=== PATIENT | female | born 1990 | race Hispanic/Latino ===

== ENCOUNTER 2017-07-10 17:55 | Emergency (ER) | payer SELFPAY ==
[~2017-07-10] VITALS: Ht 172.7 cm; Wt 61.0 kg
[~2017-07-10 17:55] MED LIST: ACYCLOVIR400 MG PO; METRONIDAZOL500 MG PO; NAPROXEN375 MG OR; PRENATA4 PO; TRAMADOL HCL50 MG PO; TYLENOL500 MG OR
[2017-07-10] MEDS ORDERED: ORPHENADRINE100 MG PO (19:21)
[2017-07-10] MEDS ORDERED: IBUPROFEN600 MG PO (19:21)
[2017-07-10 19:24] VITALS: BP 131/89
== END 2017-07-10 19:40 | disposition home or self-care (01) | DRG 563 ==
LOC: ED 17:55
DX: S46.812A Strain of other muscles, fascia and tendons at shoulder and upper arm level, left arm, initial encounter (principal); M62.838 Other muscle spasm

== ENCOUNTER 2017-08-23 17:30 | Emergency (ER) | payer SELFPAY ==
[~2017-08-23] VITALS: Ht 172.7 cm; Wt 70.0 kg
[~2017-08-23 17:30] MED LIST changes: +IBUPROFEN600 MG PO; +ORPHENADRINE100 MG PO
[2017-08-23] MEDS ORDERED: IBUPROFEN600 MG PO (17:53)
[2017-08-23] MEDS ORDERED: AMOXICILLIN875 MG PO (17:53)
[2017-08-23] MEDS ORDERED: PENICILLN VK500 MG PO (17:56)
[2017-08-23 18:05] VITALS: BP 121/68
== END 2017-08-23 18:05 | disposition home or self-care (01) | DRG 159 ==
LOC: ED 17:30
DX: K04.7 Periapical abscess without sinus (principal); K02.9 Dental caries, unspecified; K03.81 Cracked tooth; F17.210 Nicotine dependence, cigarettes, uncomplicated; Z86.79 Personal history of other diseases of the circulatory system; Z87.442 Personal history of urinary calculi

== ENCOUNTER 2017-08-25 11:21 | Emergency (ER) | payer SELFPAY ==
[~2017-08-25] VITALS: Ht 172.7 cm; Wt 64.0 kg
[~2017-08-25 11:21] MED LIST changes: +AMOXICILLIN875 MG PO; +PENICILLN VK500 MG PO
[2017-08-25 12:08] LABS: IMMATURE GRANULOCYTES 0.3 % (0.0-1.0); MEAN CORPUSCULAR HGB 32.4 pG CALC (26.0-32.0); MEAN CORPUSCULAR HGB CONC 33.3 g/L CALC (32.0-36.0); NEUT# 9.6 thou/uL (2.00-7.15); RED BLOOD COUNT 5.64 mill/uL (4.20-5.60); RED CELL DISTRI WIDTH 14.2 % (11.5-15.5)
[2017-08-25 12:09] LABS: HEMATOCRIT 54.9 % (37.0-47.0); HEMOGLOBIN 18.3 g/dl (12.0-16.0); MEAN CELL VOLUME 97.3 fL CALC (80.0-100.0)
[2017-08-25 12:19] LABS: ANION GAP 17 (6-22 (CALC)); BUN 14 mg/dL (7-17); BUN/CREATININE RATIO 19 (12-20 (CALC)); CARBON DIOXIDE 24 mmol/l (22-30); CHLORIDE 104 mmol/l (95-108); CREATININE 0.8 mg/dL (0.5-1.0); GFR > 60 ML/MIN (>=60 (CALC)); GFR FOR AFR.AMER. > 60 ML/MIN (>=60 (CALC)); SODIUM 141 mmol/l (137-146)
[2017-08-25 12:24] LABS: POTASSIUM 4.4 mmol/l (3.5-5.1)
[2017-08-25] MEDS ORDERED: CLINDAMYCIN300 M1 PO (14:10)
[2017-08-25 14:21] VITALS: BP 127/78
== END 2017-08-25 14:20 | disposition home or self-care (01) | DRG 159 ==
LOC: ED 11:21
PROVIDERS: Family Medicine
DX: K02.9 Dental caries, unspecified (principal); K04.7 Periapical abscess without sinus; K03.81 Cracked tooth; F17.210 Nicotine dependence, cigarettes, uncomplicated; Z86.19 Personal history of other infectious and parasitic diseases
CPT/HCPCS: Q9967

== ENCOUNTER 2017-10-20 10:45 | Emergency (ER) | payer SELFPAY ==
[~2017-10-20] VITALS: Ht 160 cm; Wt 63.6 kg
[~2017-10-20 10:45] MED LIST changes: +CLINDAMYCIN300 M1 PO
[2017-10-20] MEDS ORDERED: TORADOL PO (12:30)
[2017-10-20] MEDS ORDERED: FLEXERIL PO (12:30)
[2017-10-20 12:38] VITALS: BP 120/77
== END 2017-10-20 12:46 | disposition home or self-care (01) | DRG 563 ==
LOC: ED 10:45
DX: S29.011A Strain of muscle and tendon of front wall of thorax, initial encounter (principal); X50.0XXA Overexertion from strenuous movement or load, initial encounter; F17.210 Nicotine dependence, cigarettes, uncomplicated; Z87.442 Personal history of urinary calculi

== ENCOUNTER 2018-08-10 11:47 | Emergency (ER) | payer OTHER ==
[~2018-08-10] VITALS: Ht 160 cm; Wt 70.5 kg
[~2018-08-10 11:47] MED LIST changes: +FLEXERIL PO; +TORADOL PO
[2018-08-10] MEDS ORDERED: PENICILLN VK500 M1 PO (12:06)
[2018-08-10 12:20] VITALS: BP 109/77
== END 2018-08-10 12:30 | disposition home or self-care (01) ==
LOC: ED 11:47
DX: K08.89 Other specified disorders of teeth and supporting structures (principal)

== ENCOUNTER 2019-03-22 08:56 | Emergency (ER) | payer OTHER ==
[~2019-03-22] VITALS: Ht 160 cm; Wt 61.0 kg
[~2019-03-22 08:56] MED LIST changes: +PENICILLN VK500 M1 PO
[2019-03-22] MEDS ORDERED: TAM75CAP PO (09:18)
[2019-03-22] MEDS ORDERED: ONDANSETRON4 MG PO (09:18)
[2019-03-22 09:27] VITALS: BP 117/69
== END 2019-03-22 09:30 | disposition home or self-care (01) ==
LOC: ED 08:56
DX: J11.1 Influenza due to unidentified influenza virus with other respiratory manifestations (principal)

== ENCOUNTER 2019-08-27 02:21 | Emergency (ER) | payer OTHER ==
[~2019-08-27 02:21] MED LIST changes: +ONDANSETRON4 MG PO; +TAM75CAP PO
[2019-08-27 03:10] VITALS: BP 115/81
== END 2019-08-27 04:00 ==
LOC: ED 02:21
DX: O71.4 Obstetric high vaginal laceration alone (principal); Z3A.38 38 weeks gestation of pregnancy; Z37.0 Single live birth

== ENCOUNTER 2019-12-18 19:26 | Emergency (ER) | payer OTHER ==
[~2019-12-18] VITALS: Ht 157.5 cm; Wt 63.0 kg
[2019-12-18] MEDS ORDERED: LORTAB 5/3255 MG PO (19:47)
[2019-12-18] MEDS ORDERED: AMOXICILLIN500 MG PO (19:48)
[2019-12-18 20:11] LABS: HEMATOCRIT 44.9 % (37.0-47.0); HEMOGLOBIN 14.3 g/dl (12.0-16.0); IMMATURE GRANULOCYTES 0.2 % (0.0-5.0); MEAN CELL VOLUME 94.9 fL CALC (80.0-100.0); MEAN CORPUSCULAR HGB 30.2 pG CALC (26.0-32.0); MEAN CORPUSCULAR HGB CONC 31.8 g/dL CAL (32.0-36.0); NEUT# 6.69 thou/uL (2.00-7.15); RED BLOOD COUNT 4.73 mill/uL (4.20-5.60); RED CELL DISTRI WIDTH 12.7 % (11.5-15.5)
[2019-12-18 20:12] LABS: URINE BILIRUBIN - DIPSTICK NEGATIVE (NEGATIVE); URINE BLOOD DIPSTICK NEGATIVE (NEGATIVE); URINE COLOR YELLOW; URINE GLUCOSE - DIPSTICK NEGATIVE (NEGATIVE); URINE KETONE NEGATIVE (NEGATIVE); URINE LEUK ESTERASE NEGATIVE (NEGATIVE); URINE NITRITE - DIPSTICK NEGATIVE (Negative); URINE PROTEIN - DIPSTICK NEGATIVE (NEG-TRACE); URINE SPECIFIC GRAVITY 1.015; URINE UROBILINOGEN - DIPSTICK 0.2 E.U./dL (0.2)
[2019-12-18 20:28] LABS: HCG SERUM/URINE (NEG/POS) NEGATIVE (NEGATIVE); PROTHROMBIN TIME 10.4 SECONDS (9.0-12.5)
[2019-12-18 20:30] LABS: ALBUMIN 4.6 g/dL (3.2-5.0); ALKALINE PHOSPHATASE 72 u/l (38-126); ANION GAP 12 (6-22 (CALC)); BILIRUBIN, TOTAL 0.5 mg/dL (0.0-1.4); BUN 10 mg/dL (7-17); BUN/CREATININE RATIO 11 (12-20 (CALC)); CARBON DIOXIDE 25 mmol/l (22-30); CHLORIDE 104 mmol/l (95-108); CREATININE 0.9 mg/dL (0.5-1.0); GFR > 60 ML/MIN (>=60 (CALC)); GFR FOR AFR.AMER. > 60 ML/MIN (>=60 (CALC)); MAGNESIUM 1.8 mg/dL (1.6-2.3); POTASSIUM 4.5 mmol/l (3.5-5.1); SGOT/AST 45 u/l (14-36); SODIUM 137 mmol/l (137-146); TOTAL PROTEIN 7.5 g/dL (6.3-8.2)
[2019-12-18 20:42] LABS: MYOGLOBIN 36 ng/mL (0 - 62)
[2019-12-18] MEDS ORDERED: BUSPAR5 MG PO (21:11)
[2019-12-18 21:19] VITALS: BP 120/73
== END 2019-12-18 21:30 | disposition home or self-care (01) ==
LOC: ED 19:26
PROVIDERS: Family Medicine
DX: R42 Dizziness and giddiness (principal); F41.9 Anxiety disorder, unspecified; R06.02 Shortness of breath; R53.1 Weakness; K08.409 Partial loss of teeth, unspecified cause, unspecified class; Z95.2 Presence of prosthetic heart valve; Z20.828 Contact with and (suspected) exposure to other viral communicable diseases

== ENCOUNTER 2019-12-20 16:21 | Emergency (ER) | payer OTHER ==
[~2019-12-20] VITALS: Ht 157.5 cm; Wt 70.0 kg
[~2019-12-20 16:21] MED LIST changes: +AMOXICILLIN500 MG PO; +BUSPAR5 MG PO; +LORTAB 5/3255 MG PO
[2019-12-20 17:14] LABS: HEMATOCRIT 45.6 % (37.0-47.0); HEMOGLOBIN 14.7 g/dl (12.0-16.0); IMMATURE GRANULOCYTES 0.1 % (0.0-5.0); MEAN CORPUSCULAR HGB 30.3 pG CALC (26.0-32.0); MEAN CORPUSCULAR HGB CONC 32.2 g/dL CAL (32.0-36.0); NEUT# 5.06 thou/uL (2.00-7.15); RED BLOOD COUNT 4.85 mill/uL (4.20-5.60)
[2019-12-20 17:28] LABS: ALBUMIN 4.7 g/dL (3.2-5.0); ALKALINE PHOSPHATASE 75 u/l (38-126); ANION GAP 14 (6-22 (CALC)); BILIRUBIN, TOTAL 0.7 mg/dL (0.0-1.4); BUN 9 mg/dL (7-17); BUN/CREATININE RATIO 12 (12-20 (CALC)); CARBON DIOXIDE 23 mmol/l (22-30); CHLORIDE 106 mmol/l (95-108); CREATININE 0.7 mg/dL (0.5-1.0); GFR > 60 ML/MIN (>=60 (CALC)); GFR FOR AFR.AMER. > 60 ML/MIN (>=60 (CALC)); POTASSIUM 4.3 mmol/l (3.5-5.1); SGOT/AST 96 u/l (14-36); SODIUM 139 mmol/l (137-146); TOTAL PROTEIN 7.6 g/dL (6.3-8.2)
[2019-12-20] MEDS ORDERED: ALL DAY10 MG PO (17:56)
[2019-12-20] MEDS ORDERED: AMOX/K CLAV875 M1 PO (17:56)
[2019-12-20 18:05] VITALS: BP 138/90
== END 2019-12-20 18:02 | disposition home or self-care (01) ==
LOC: ED 16:21
PROVIDERS: Family Medicine
DX: J32.9 Chronic sinusitis, unspecified (principal); F41.9 Anxiety disorder, unspecified; K08.409 Partial loss of teeth, unspecified cause, unspecified class; Z95.2 Presence of prosthetic heart valve

== ENCOUNTER 2020-06-21 13:54 | Emergency (ER) | payer OTHER ==
[~2020-06-21] VITALS: Ht 157.5 cm; Wt 66.4 kg
[~2020-06-21 13:54] MED LIST changes: +ALL DAY10 MG PO; +AMOX/K CLAV875 M1 PO
[2020-06-21] MEDS ORDERED: BUSPIRONE30 MG PO (16:21)
[2020-06-21] MEDS ORDERED: CLONAZEPAM1 MG PO (16:21)
[2020-06-21] MEDS ORDERED: MOTRIN400 MG/TAB PO (16:22)
[2020-06-21] MEDS ORDERED: CYCLOBENZAPRINE10 MG PO (16:39)
[2020-06-21 17:15] VITALS: BP 128/79
== END 2020-06-21 17:15 | disposition home or self-care (01) ==
LOC: ED 13:54
DX: M25.511 Pain in right shoulder (principal); W01.190A Fall on same level from slipping, tripping and stumbling with subsequent striking against furniture, initial encounter; Y92.009 Unspecified place in unspecified non-institutional (private) residence as the place of occurrence of the external cause

== ENCOUNTER 2020-09-13 12:11 | Emergency (ER) | payer OTHER ==
[~2020-09-13] VITALS: Ht 157.5 cm; Wt 64.0 kg
[~2020-09-13 12:11] MED LIST changes: +BUSPIRONE30 MG PO; +CLONAZEPAM1 MG PO; +CYCLOBENZAPRINE10 MG PO; +MOTRIN400 MG/TAB PO
[2020-09-13 14:00] LABS: URINE BILIRUBIN - DIPSTICK NEGATIVE (NEGATIVE); URINE BLOOD DIPSTICK NEGATIVE (NEGATIVE); URINE COLOR YELLOW; URINE GLUCOSE - DIPSTICK NEGATIVE (NEGATIVE); URINE KETONE TRACE mg/dL (NEGATIVE); URINE LEUK ESTERASE NEGATIVE (NEGATIVE); URINE PH 6.5 (4.5-8.0); URINE PROTEIN - DIPSTICK NEGATIVE (NEG-TRACE); URINE UROBILINOGEN - DIPSTICK 0.2 E.U./dL (0.2)
[2020-09-13] MEDS ORDERED: XANAX1 MG PO (14:00)
[2020-09-13] MEDS ORDERED: LAMICTAL100 M1 PO (14:00)
[2020-09-13 14:01] LABS: URINE NITRITE - DIPSTICK NEGATIVE (Negative)
[2020-09-13] MEDS ORDERED: BUSPAR5 MG PO (14:01)
[2020-09-13] MEDS ORDERED: CIPROFLOXACN500 MG PO (14:18)
[2020-09-13] MEDS ORDERED: PYRIDIUM200 MG PO (14:18)
[2020-09-13 14:26] VITALS: BP 109/73
== END 2020-09-13 14:37 | disposition home or self-care (01) ==
LOC: ED 12:11
DX: N30.90 Cystitis, unspecified without hematuria (principal); F31.9 Bipolar disorder, unspecified; F41.9 Anxiety disorder, unspecified; Z87.442 Personal history of urinary calculi

== ENCOUNTER 2021-12-28 09:32 | Emergency (ER) | payer OTHER ==
[~2021-12-28] VITALS: Ht 157.5 cm; Wt 53.9 kg
[~2021-12-28 09:32] MED LIST changes: +CIPROFLOXACN500 MG PO; +LAMICTAL100 M1 PO; +PYRIDIUM200 MG PO; +XANAX1 MG PO
[2021-12-28 09:47] VITALS: BP 127/84
[2021-12-28 10:00] VITALS: BP 124/81
[2021-12-28 10:05] LABS: HEMATOCRIT 44.8 % (37.0-47.0); IMMATURE GRANULOCYTES 0.1 % (0.0-5.0); MEAN CELL VOLUME 93.1 fL CALC (80.0-100.0); MEAN CORPUSCULAR HGB 31.2 pG CALC (26.0-32.0); MEAN CORPUSCULAR HGB CONC 33.5 g/dL CAL (32.0-36.0); NEUT# 5.92 thou/uL (2.00-7.15); RED BLOOD COUNT 4.81 mill/uL (4.20-5.60); RED CELL DISTRI WIDTH 12.9 % (11.5-15.5)
[2021-12-28 10:15] VITALS: BP 111/71
[2021-12-28 10:16] LABS: URINE BLOOD DIPSTICK NEGATIVE (NEGATIVE); URINE COLOR BROWN; URINE GLUCOSE - DIPSTICK NEGATIVE (NEGATIVE); URINE KETONE TRACE mg/dL (NEGATIVE); URINE LEUK ESTERASE NEGATIVE (NEGATIVE); URINE PH 5.5 (4.5-8.0); URINE PROTEIN - DIPSTICK 30 mg/dL (NEG-TRACE); URINE SPECIFIC GRAVITY >=1.030; URINE UROBILINOGEN - DIPSTICK 0.2 E.U./dL (0.2)
[2021-12-28 10:18] LABS: ALBUMIN 4.9 g/dL (3.2-5.0); ALKALINE PHOSPHATASE 76 u/l (38-126); ANION GAP 16 (6-22 (CALC)); BILIRUBIN, TOTAL 0.7 mg/dL (0.0-1.4); BUN 11 mg/dL (7-17); BUN/CREATININE RATIO 13 (12-20 (CALC)); CHLORIDE 100 mmol/l (95-108); CREATININE 0.8 mg/dL (0.5-1.0); GFR FOR AFR.AMER. > 60 ML/MIN (>=60 (CALC)); GFR OTHER RACES > 60 ML/MIN (>=60 (CALC)); POTASSIUM 3.9 mmol/l (3.5-5.1); SGOT/AST 69 u/l (14-36); SODIUM 140 mmol/l (137-146); URINE BILIRUBIN - DIPSTICK MODERATE (NEGATIVE); URINE NITRITE - DIPSTICK NEGATIVE (Negative)
[2021-12-28 10:19] LABS: CARBON DIOXIDE 28 mmol/l (22-30)
[2021-12-28 10:28] LABS: URINE CALCIUM OXALATE CRYSTALS MODERATE lpf; URINE RBC 0-2 RBC/hpf (0-5); URINE WBC 0-2 WBC/hpf (0-5)
[2021-12-28 10:30] VITALS: BP 99/70
[2021-12-28 12:02] VITALS: BP 99/70
== END 2021-12-28 12:07 | disposition home or self-care (01) ==
LOC: ED 09:32
PROVIDERS: Internal Medicine
DX: R11.2 Nausea with vomiting, unspecified (principal); R51.9 Headache, unspecified; F41.9 Anxiety disorder, unspecified; F31.9 Bipolar disorder, unspecified

== ENCOUNTER 2022-02-28 08:16 | Emergency (ER) | payer OTHER ==
[~2022-02-28] VITALS: Ht 157.5 cm; Wt 50.0 kg
[2022-02-28 08:37] VITALS: BP 120/68
[2022-02-28 08:42] LABS: HEMATOCRIT 45.4 % (37.0-47.0); HEMOGLOBIN 14.7 g/dl (12.0-16.0); IMMATURE GRANULOCYTES 0.1 % (0.0-5.0); MEAN CELL VOLUME 95.4 fL CALC (80.0-100.0); MEAN CORPUSCULAR HGB 30.9 pG CALC (26.0-32.0); MEAN CORPUSCULAR HGB CONC 32.4 g/dL CAL (32.0-36.0); NEUT# 4.64 thou/uL (2.00-7.15); RED BLOOD COUNT 4.76 mill/uL (4.20-5.60); RED CELL DISTRI WIDTH 13.6 % (11.5-15.5)
[2022-02-28 08:45] VITALS: BP 111/67
[2022-02-28 09:00] VITALS: BP 112/67
[2022-02-28 09:13] LABS: ALBUMIN 4.5 g/dL (3.2-5.0); ALKALINE PHOSPHATASE 68 u/l (38-126); ANION GAP 13 (6-22 (CALC)); BILIRUBIN, TOTAL 0.7 mg/dL (0.0-1.4); BUN 12 mg/dL (7-17); BUN/CREATININE RATIO 15 (12-20 (CALC)); CARBON DIOXIDE 29 mmol/l (22-30); CHLORIDE 102 mmol/l (95-108); CREATININE 0.8 mg/dL (0.5-1.0); ETHYL ALCOHOL 0 mg/dl (0-30); GFR FOR AFR.AMER. > 60 ML/MIN (>=60 (CALC)); GFR OTHER RACES > 60 ML/MIN (>=60 (CALC)); LIPASE 23 u/l (23-300); POTASSIUM 4.2 mmol/l (3.5-5.1); SGOT/AST 90 u/l (14-36); SODIUM 139 mmol/l (137-146); TOTAL PROTEIN 7.1 g/dL (6.3-8.2)
[2022-02-28 09:15] VITALS: BP 106/64
[2022-02-28 09:47] LABS: URINE BILIRUBIN - DIPSTICK NEGATIVE (NEGATIVE); URINE BLOOD DIPSTICK LARGE (NEGATIVE); URINE COLOR YELLOW; URINE GLUCOSE - DIPSTICK NEGATIVE (NEGATIVE); URINE KETONE NEGATIVE (NEGATIVE); URINE LEUK ESTERASE NEGATIVE (NEGATIVE); URINE PH 8.5 (4.5-8.0); URINE PROTEIN - DIPSTICK TRACE mg/dL (NEG-TRACE); URINE SPECIFIC GRAVITY 1.015; URINE UROBILINOGEN - DIPSTICK 0.2 E.U./dL (0.2)
[2022-02-28 09:53] LABS: URINE NITRITE - DIPSTICK NEGATIVE (Negative)
[2022-02-28 09:54] LABS: URINE EPITHELIAL CELLS MODERATE EPI/hpf (0-FEW)
[2022-02-28 11:12] VITALS: BP 100/67
== END 2022-02-28 11:13 | disposition home or self-care (01) ==
LOC: ED 08:16
PROVIDERS: Family Medicine
DX: S06.0X0A Concussion without loss of consciousness, initial encounter (principal); R07.81 Pleurodynia; F31.9 Bipolar disorder, unspecified; F41.9 Anxiety disorder, unspecified; Y04.2XXA Assault by strike against or bumped into by another person, initial encounter; Y92.009 Unspecified place in unspecified non-institutional (private) residence as the place of occurrence of the external cause

== ENCOUNTER 2022-03-18 14:10 | Emergency (ER) | payer OTHER ==
[~2022-03-18] VITALS: Ht 157.5 cm; Wt 51.0 kg
[2022-03-18] MEDS ORDERED: ZPAK PO (16:33)
[2022-03-18] MEDS ORDERED: ONDANSETRON4 MG PO (16:33)
[2022-03-18 17:13] VITALS: BP 115/83
== END 2022-03-18 17:13 | disposition home or self-care (01) ==
LOC: ED 14:10
DX: U07.1 COVID-19 (principal); R11.2 Nausea with vomiting, unspecified; R52 Pain, unspecified; J32.9 Chronic sinusitis, unspecified; F41.9 Anxiety disorder, unspecified; F31.9 Bipolar disorder, unspecified